=== PATIENT | female | born 1980 | race Caucasian/White ===

== ENCOUNTER 2021-01-26 14:19 | Emergency (ER) | payer BC, SELFPAY ==
--- NOTE | 2021-01-26 15:36 | RAD REPORT ---
EXAM DESCRIPTION: CT - Head Brain Wo Cont - 01/26/2021 3:20 pm CLINICAL HISTORY: DIZZINESS COMPARISON: No comparisons TECHNIQUE: Axial 5 mm thick images of the head were obtained without IV contrast. All CT scans are performed using dose optimization technique as appropriate and may include automated exposure control or mA/KV adjustment according to patient size. FINDINGS: No intracranial hemorrhage, mass, edema or shift of mid-line structures. No acute infarcti on changes seen. No abnormal extra-axial fluid collections. Ventricles are normal. Mastoid air cells and visualized portions of the paranasal sinuses are clear. No acute bony findings. IMPRESSION: Negative non-contrast CT head examination.
--- NOTE | 2021-01-26 20:05 | RAD REPORT ---
EXAM DESCRIPTION: RAD - Chest Single View - 01/26/2021 7:52 pm CLINICAL HISTORY: Dizziness COMPARISON: None TECHNIQUE: AP portable chest image was obtained 01/26/2021 7:52 pm . FINDINGS: No focal mass or consolidation. Vasculature and lung markings are accentuated by portable technique and large body habitus affects. A minimal amount of failure or volume overload would be pot entially masked. Heart and vasculature are normal. No measurable pleural effusion and no pneumothorax . No acute bony abnormality seen. No acute aortic findings suspected. IMPRESSION: No focal lung parenchymal process seen. Mild prominence of the vasculature and lung markings believed to be body habitus affects. However, a mild edema could be masked.
[2021-01-26 22:27] LABS: Absolute Lymphocytes (CBC) 1.2 K/uL (0.7-4.9); Basophils % 0.9 % (0-1.3); Hematocrit 37.4 % (36.0-45.0); Lymphocytes % 12.9 % (15.3-44.8); RBC Red Blood Cell Count 3.71 M/uL (3.86-4.86)
[2021-01-26 22:31] LABS: Urine Blood 1+ (Negative); Urine Glucose Negative (Negative); Urine Protein Trace (Negative); Urine pH 7.5 (5.0-7.0)
[2021-01-26 22:50] LABS: Protime INR 1.14
[2021-01-26 23:04] LABS: ALT/SGPT 74 U/L (12-78); AST/SGOT 72 U/L (15-37); Albumin 3.6 g/dL (3.4-5.0); Alkaline Phosphatase 102 U/L (45-117); BUN Blood Urea Nitrogen 7 mg/dL (7-18); Bicarbonate 28 mmol/L (21-32); Bilirubin Direct 0.2 mg/dL (0-0.2); Bilirubin Total 0.7 mg/dL (0.2-1.0); Glucose Level 110 mg/dL (74-106); Magnesium 1.8 mg/dL (1.8-2.4); NT PRO-BNP 37 pg/mL (<125); Potassium 3.6 mmol/L (3.5-5.1); Sodium Level 137 mmol/L (136-145); Troponin (Emerg Dept Use Only) < 0.02 ng/mL (0.0-0.045)
[2021-01-26 23:19] LABS: Urine Bacteria 20-50 /HPF (<20); Urine Mucus 1+ /HPF (NONE SEEN); Urine RBC <5 /HPF (NONE SEEN)
--- NOTE | 2021-01-27 00:29 | ER ---
Nurse's Notes [facility] Name: Michelle Leon Age: 40 yrs Sex: Female : 1980 Arrival Date: 01/26/2021 Time: 14:24 Bed 23 Private MD: Diagnosis: Dizziness and giddiness;Essential (primary) hypertension;Paresthesias Presentation: 01/26 14:54 Chief complaint: Patient states: Started at 1300 today, I got dizzy, my medina hands ca1 tingling, mostly L hand. [place] Feet tingling, mostly R foot. A\\T\\Ox4, no facial droop, no slurring, VAN negative. Coronavirus screen: Client denies travel out of the [place] in the last 14 days. At this time, the client does not indicate any symptoms associated with coronavirus-19. Ebola Screen: Patient negative for fever greater than or equal to 101.5 degrees Fahrenheit, and additional compatible Ebola Virus Disease symptoms Patient denies exposure to infectious person. Patient denies travel to an Ebola-affected area in the 21 days before illness onset. No symptoms or risks identified at this time. Initial Sepsis Screen: Does the patient meet any 2 criteria? No. Patient's initial sepsis screen is negative. Does the patient have a suspected source of infection? No. Patient's initial sepsis screen is negative. Risk Assessment: Do you want to hurt yourself or someone else? Patient reports no desire to harm self or others. Onset of symptoms was January 26, 2021 at 13:00. 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 - Social history:: Smoking status: Patient denies any tobacco usage or history of. Screenin:25 Abuse screen: Denies threats or abuse. Denies injuries from another. Nutritional bs2 screening: No deficits noted. Tuberculosis screening: No symptoms or risk factors identified. Fall Risk None identified. Assessment: 19:25 General: Appears in no apparent distress. obese, well groomed, well developed, well bs2 nourished, Behavior is cooperative, appropriate for age, anxious. Pain: Denies pain. Neuro: Reports dizziness. GI: Abdomen is round non-distended, obese. 08 01:05 Reassessment: Patient and/or family updated on plan of care and expected duration. Pain ea level reassessed. Patient is alert, oriented x 3, equal unlabored respirations, skin warm/dry/pink. Discharge instruction given to patient verbalized the understanding of instruction. Pt left ED ambulatory tolerating well. Vital Signs: 01/26 14:54 BP 191 / 106; Pulse 100; Resp 16 S; Temp 97.2(TE); Pulse Ox 99% on R/A; Weight 158.76 ca1 kg (R); Height 5 ft. 7 in. (170.18 cm) (R); Pain 0/10; 22:38 BP 170 / 86 LA Sitting (auto/lg); Pulse 88 MON; Resp 22 S; Temp 98.6(O); Pulse Ox 100% bs2 on R/A; Pain 0/10; 08 01:06 BP 166 / 76; Pulse 80; Resp 19; Pulse Ox 98% ; ea 01/26 14:54 Body Mass Index 54.82 (158.76 kg, 170.18 cm) ca1 ED Course: 08 14:24 Patient arrived in ED. mr 14:57 Triage completed. ca1 14:57 Arm band placed on right wrist. ca1 15:20 CT Head Brain wo Cont In Process Unspecified. EDMS 19:01 Gavino Randolph MD is Attending Physician. mh7 19:25 Patient has correct armband on for positive identification. Bed in low position. Call bs2 light in reach. Side rails up X 1. desk monitor on. Pulse ox on. NIBP on. Door closed. Lights dimmed. Warm blanket given. 19:31 Juliet Mendez, SONJA is Primary Nurse. bs2 19:52 XRAY Chest (1 view) In Process Unspecified. EDMS 22:24 Basic Metabolic Panel Sent. bs2 22:24 CBC with Diff Sent. bs2 22:24 LFT's Sent. bs2 22:24 Magnesium Sent. bs2 22:24 NT PRO-BNP Sent. bs2 22:24 PT-INR Sent. bs2 22:24 Troponin (emerg Dept Use Only) Sent. bs2 22:24 COVID-19 : Document "Date of Symptom Onset" if Symptomatic. Sent. bs2 22:37 Inserted saline lock: 20 gauge in right forearm, using aseptic technique. Blood bs2 collected. 01/27 00:27 Rob Colindres MD is Referral Physician. [facility] 01:06 No provider procedures requiring assistance completed. IV discontinued, intact, ea bleeding controlled, No redness/swelling at site. Pressure dressing applied. Administered Medications: No medications were administered Outcome: 00:29 Discharge ordered by . [facility] 01:06 Discharged to home ambulatory, with friend. ea 01:06 Condition: stable 01:06 Discharge instructions given to patient, Instructed on discharge instructions, follow up and referral plans. Demonstrated understanding of instructions, follow-up care. 01:07 Patient left the ED. ea Signatures: Dispatcher [employer] EDCO Taylor Singh Elena RN Jyoti Shah ea RN SONJA [facility] Gavino Randolph MD MD [facility] Juliet Mendez RN RN bs2 Corrections: (The following items were deleted from the chart) 01/26 22:47 22:24 CORONAVIRUS drawn and sent. bs2 [facility]
--- NOTE | 2021-01-27 00:29 | EDPHYS ---
Physician Documentation [facility] Name: Michelle Leon Age: 40 yrs Sex: Female : 1980 Arrival Date: 01/26/2021 Time: 14:24 Bed 23 Private MD: ED Physician Gavino Randolph HPI: 01/26 19:05 This 40 yrs old Female presents to ER via Ambulatory with complaints of mh7 Dizziness, Nausea. 19:05 The patient presents with dizziness, lightheadedness. Onset: The symptoms/episode mh7 began/occurred today, at 13:00. Context: occurred at home, occurred while the patient was eating, sitting, just prior to the episode the patient experienced no apparent symptoms. Modifying factors: The symptoms are alleviated by nothing, the symptoms are aggravated by standing up, changing position. Associated signs and symptoms: Pertinent positives: nausea, numbness, tingling, left forearm/hand, right foot intermittently for 3 days, felt shakiness of hands, Pertinent negatives: abdominal pain, agitation, ataxia, blurred vision, chest pain, combativeness, confusion, diaphoresis, focal weakness, head injury, headache, near-syncope, palpitations, seizure, shortness of breath, syncope, vomiting. Severity of symptoms: At their worst the symptoms were moderate today, in the emergency department the symptoms have resolved and did so while in waiting room. Patient's baseline: Neuro: alert and fully oriented, Motor: no deficits, Ambulation: walks without assistance, Speech: normal. 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 - Social history:: Smoking status: Patient denies any tobacco usage or history of. ROS: 19:05 Constitutional: Negative for fever, chills, and weight loss, Eyes: Negative for injury, mh7 pain, redness, and discharge, ENT: Negative for injury, pain, and discharge, Neck: Negative for injury, pain, and swelling, Cardiovascular: Negative for chest pain, palpitations, and edema, Respiratory: Negative for shortness of breath, cough, wheezing, and pleuritic chest pain, Abdomen/GI: Negative for abdominal pain, nausea, vomiting, diarrhea, and constipation, Back: Negative for injury and pain, : Negative for injury, bleeding, discharge, and swelling, MS/Extremity: Negative for injury and deformity, Skin: Negative for injury, rash, and discoloration, Psych: Negative for depression, anxiety, suicide ideation, homicidal ideation, and hallucinations, Allergy/Immunology: Negative for hives, rash, and allergies, Endocrine: Negative for neck swelling, polydipsia, polyuria, polyphagia, and marked weight changes, Hematologic/Lymphatic: Negative for swollen nodes, abnormal bleeding, and unusual bruising. Exam: 19:05 Constitutional: This is a well developed, well nourished patient who is awake, alert, mh7 and in no acute distress. Head/Face: Normocephalic, atraumatic. Eyes: Pupils equal round and reactive to light, extra-ocular motions intact. Lids and lashes normal. Conjunctiva and sclera are non-icteric and not injected. Cornea within normal limits. Periorbital areas with no swelling, redness, or edema. Neck: Trachea midline, no thyromegaly or masses palpated, and no cervical lymphadenopathy. Supple, full range of motion without nuchal rigidity, or vertebral point tenderness. No Meningismus. Chest/axilla: Normal chest wall appearance and motion. Nontender with no deformity. No lesions are appreciated. Cardiovascular: Regular rate and rhythm with a normal S1 and S2. No gallops, murmurs, or rubs. Normal PMI, no JVD. No pulse deficits. Respiratory: Lungs have equal breath sounds bilaterally, clear to auscultation and percussion. No rales, rhonchi or wheezes noted. No increased work of breathing, no retractions or nasal flaring. Abdomen/GI: Soft, non-tender, with normal bowel sounds. No distension or tympany. No guarding or rebound. No evidence of tenderness throughout. Back: No spinal tenderness. No costovertebral tenderness. Full range of motion. Skin: Warm, dry with normal turgor. Normal color with no rashes, no lesions, and no evidence of cellulitis. MS/ Extremity: Pulses equal, no cyanosis. Neurovascular intact. Full, normal range of motion. Neuro: Awake and alert, GCS 15, oriented to person, place, time, and situation. Cranial nerves II-XII grossly intact. Motor strength 5/5 in all extremities. Sensory grossly intact. Cerebellar exam normal. Normal gait. Psych: Awake, alert, with orientation to person, place and time. Behavior, mood, and affect are within normal limits. Vital Signs: 14:54 BP 191 / 106; Pulse 100; Resp 16 S; Temp 97.2(TE); Pulse Ox 99% on R/A; Weight 158.76 ca1 kg (R); Height 5 ft. 7 in. (170.18 cm) (R); Pain 0/10; 22:38 BP 170 / 86 LA Sitting (auto/lg); Pulse 88 MON; Resp 22 S; Temp 98.6(O); Pulse Ox 100% bs2 on R/A; Pain 0/10; 01/27 01:06 BP 166 / 76; Pulse 80; Resp 19; Pulse Ox 98% ; ea 01/26 14:54 Body Mass Index 54.82 (158.76 kg, 170.18 cm) ca1 MDM: 01/26 19:05 Differential diagnosis: cardiac arrhythmia, CVA, generalized weakness, hypovolemia, mh7 idiopathic dizziness, near-syncope, , syncope, TIA. Data reviewed: vital signs, nurses notes, lab test result(s), cardiac enzymes, CBC, electrolytes, urinalysis, EKG, radiologic studies, CT scan, plain films. Data interpreted: Pulse oximetry: on room air is 100 %. Interpretation: normal. Counseling: I had a detailed discussion with the patient and/or guardian regarding: the historical points, exam findings, and any diagnostic results supporting the discharge/admit diagnosis, the presence of at least one elevated blood pressure reading (>120/80) during this emergency department visit, lab results, radiology results, the need for outpatient follow up, to return to the emergency department if symptoms worsen or persist or if there are any questions or concerns that arise at home. Response to treatment: the patient's symptoms have resolved after treatment, the patient's blood pressure is in an acceptable range, mental status has returned to baseline, the patient no longer shows bradycardia, the patient is not short of breath, the patient is not tachycardic, the patient's pain is gone, the patient's temperature has normalized, the patient's condition has returned to base line. 01/27 00:29 Patient medically screened. [facility] 01/26 19:17 Order name: Basic Metabolic Panel; Complete Time: 23:13 [facility] 01/26 19:17 Order name: CBC with Diff; Complete Time: 22:46 [facility] 01/26 19:17 Order name: LFT's; Complete Time: 23:13 [facility] 01/26 19:17 Order name: Magnesium; Complete Time: 23:13 [facility] 01/26 19:17 Order name: NT PRO-BNP; Complete Time: 23:13 [facility] 01/26 19:17 Order name: PT-INR; Complete Time: 23:01 [facility] 01/26 19:17 Order name: Troponin (emerg Dept Use Only); Complete Time: 23:13 [facility] 01/26 22:23 Order name: COVID-19 : Document "Date of Symptom Onset" if Symptomatic. [facility] 01/26 22:30 Order name: Urine Dipstick-Ancillary; Complete Time: 22:46 [facility] 01/26 22:30 Order name: Urine --Ancillary (enter results); Complete Time: 23:13 [facility] 01/26 22:30 Order name: Urine Microscopic Only; Complete Time: 23:23 [facility] 01/26 23:20 Order name: Urine Culture [facility] 01/26 23:47 Order name: SARS-COV-2 RT PCR; Complete Time: 23:50 [facility] 01/26 14:58 Order name: CT Head Brain wo Cont; Complete Time: 19:02 [facility] 01/26 19:17 Order name: XRAY Chest (1 view); Complete Time: 20:29 [facility] 01/26 19:17 Order name: EKG; Complete Time: 19:17 [facility] 01/26 19:17 Order name: Cardiac monitoring; Complete Time: 22:24 [facility] 01/26 19:17 Order name: EKG - Nurse/Tech; Complete Time: 22:24 [facility] 01/26 19:17 Order name: IV Saline Lock; Complete Time: 22:24 [facility] 01/26 19:17 Order name: Labs collected and sent; Complete Time: 22:24 [facility] 01/26 19:17 Order name: O2 Per Protocol; Complete Time: 22:24 [facility] 01/26 19:17 Order name: O2 Sat Monitoring; Complete Time: 22:24 [facility] 01/26 19:17 Order name: Urine Dipstick-Ancillary (obtain specimen); Complete Time: 22:35 [facility] 01/26 19:17 Order name: Urine Test (obtain specimen); Complete Time: 22:35 [facility] Administered Medications: No medications were administered Disposition Summary: 01/27/21 00:29 Discharge Ordered Location: Home [facility] Problem: new [facility] Symptoms: are resolved [facility] Condition: Stable [facility] Diagnosis - Dizziness and giddiness [facility] - Essential (primary) hypertension [facility] - Paresthesias [facility] Followup: [facility] - With: Private Physician - When: 1 - 2 days - Reason: Worsening of condition, Recheck today's complaints, Continuance of care, Re-evaluation by your physician Followup: [facility] - With: Rob Colindres MD - When: 1 - 2 days - Reason: Worsening of condition, Recheck today's complaints Discharge Instructions: - Discharge Summary Sheet [facility] - Dizziness [facility] - Hypertension, Adult [facility] - Paresthesia, [id number] [facility] Forms: - Medication Reconciliation Form [facility] - Thank You Letter [facility] - Antibiotic Education [facility] - Prescription Opioid Use [facility] Signatures: Dispatcher [employer] EDMS Sabino Engel, INDUSTRIAL THERAPIST-C INDUSTRIAL THERAPIST-Cla1 Jyoti Mckeon RN RN ca1 Gavino Randolph MD MD [facility] Corrections: (The following items were deleted from the chart) 01/26 22:47 22:23 CORONAVIRUS ordered. EDMS EDMS
[2021-01-27 01:19] VITALS: TEMP 98.6
[2021-01-27 01:21] VITALS: BP 166/76; O2SAT 98
--- NOTE | 2021-01-27 10:49 | EKG ---
Test Date: 2021-01-26 Test Time: 22:11:02 Admissions Specialist: TYLOR MEASUREMENT RESULTS: Intervals: Rate: 82 NE: 154 QRSD: 90 QT: 412 QTc: 481 [place]: P: 34 NE: 154 QRS: 60 T: 58 INTERPRETIVE STATEMENTS: Normal sinus rhythm Prolonged QT Abnormal ECG No previous ECG available for comparison Electronically Signed On 01-27-21 10:48:10 CDT by Antonio Sherman
== END 2021-01-27 01:07 | disposition home or self-care (01) ==
LOC: ER 14:19
DX: I10 Essential (primary) hypertension (principal); R20.2 Paresthesia of skin; Z20.822 Contact with and (suspected) exposure to COVID-19
CPT/HCPCS: 93005; 87088; 85025; 87086; 80048; 36415; 83735; 81025; 85610; 80076; 84484; 83880; 70450; 71045; 99284; U0003; 81003; 81015